=== PATIENT | male | born 2000 | race African-American/Black ===

== ENCOUNTER 2018-03-15 17:59 | Emergency (ER) | payer OTHER ==
[~2018-03-15] VITALS: Ht 180.3 cm; Wt 76.4 kg
[2018-03-15 18:00] VITALS: BP 120/76
[2018-03-15] MEDS ORDERED: PROPARACAINE OPHTH 0.5%, 15ML ONE (18:58)
[2018-03-15] MEDS ORDERED: FLUORESCEIN OPHTHALMIC 1 MG STRIP EACHEYE ONE (19:00)
[2018-03-15] MEDS ORDERED: PROPARACAINE OPHTH 0.5%, 15ML EACHEYE ONE (19:00)
[2018-03-15] MEDS ORDERED: CIPROFLOXACIN OPHTH SOLN 0.3%, 5ML RIGHTEYE ONE (20:00)
== END 2018-03-15 20:21 | disposition home or self-care (01) ==
LOC: ED 20:15
DX: S05.01XA Injury of conjunctiva and corneal abrasion without foreign body, right eye, initial encounter (principal); X58.XXXA Exposure to other specified factors, initial encounter; Y93.89 Activity, other specified; Y92.89 Other specified places as the place of occurrence of the external cause; Y99.8 Other external cause status
CPT/HCPCS: 99283